=== PATIENT | female | born 1990 | race African-American/Black ===

== ENCOUNTER 2023-11-29 12:51 | Emergency (ER) | payer MEDICAID, OTHER ==
[~2023-11-29] VITALS: Ht 154.9 cm; Wt 57.2 kg
[2023-11-29] MEDS: IV NS 0.9% 1,000 ML BAG IV ONE ×3 (13:37→19:02)
[2023-11-29] MEDS ORDERED: MORPHINE SULFATE INJ 4 MG/ML DISP.SYRIN ONE ×2 (13:39→18:51)
[2023-11-29] MEDS ORDERED: ONDANSETRON HCL/PF 4 MG/2 ML VIAL ONE ×2 (13:40→18:51)
[2023-11-29 13:47] LABS: BASOPHILS # (AUTO) 0.1 K/uL (0.0-0.2); BASOPHILS % (AUTO) 0.9 % (0.0-2.0); EOSINOPHILS # (AUTO) 0.1 K/uL (0.0-0.7); EOSINOPHILS % (AUTO) 1.3 % (0.0-6.0); HEMATOCRIT 44 % (33-45); HEMOGLOBIN 14.6 g/dL (11.5-14.8); LYMPHOCYTES # (AUTO) 2.6 K/uL (0.8-4.8); LYMPHOCYTES % (AUTO) 37.2 % (20.0-44.0); MEAN CORPUSCULAR HEMOGLOBIN 31 PG (26.0-33.0); MEAN CORPUSCULAR HGB CONC 33 g/dl (31.0-36.0); MEAN CORPUSCULAR VOLUME 95 fL (82-100); MONOCYTES # (AUTO) 0.7 K/uL (0.1-1.30); NEUTROPHILS # (AUTO) 3.5 K/uL (1.8-8.9); NEUTROPHILS % (AUTO) 50.6 % (43.0-81.0); PLATELET COUNT (AUTO) 407 K/uL (150-450); RED BLOOD CELL COUNT(AUTO) 4.69 MIL/uL (4.0-5.2)
[2023-11-29] MEDS: ONDANSETRON HCL/PF 4 MG/2 ML VIAL IV ONE (13:51)
[2023-11-29 13:55] LABS: CREATININE 0.7 mg/dL (0.6-1.3)
[2023-11-29] MEDS: MORPHINE SULFATE INJ 2 MG/ML DISP.SYRIN IV ONE ×2 (13:55→19:10)
[2023-11-29 14:01] LABS: ALBUMIN 3.3 g/dL (3.4-5.0); BILIRUBIN,DIRECT 0.1 mg/dL (0.0-0.2); BILIRUBIN,TOTAL 0.6 mg/dL (0.2-1.0); TOTAL PROTEIN, SERUM 7.5 g/dL (6.4-8.2)
[2023-11-29] MEDS ORDERED: IV NS 0.9% 250 ML IV ONE (14:16)
[2023-11-29] MEDS ORDERED: IOHEXOL-300 100 ML VIAL IV ONE (14:16)
[2023-11-29] MEDS ORDERED: CT SWABBABLE VALVE TRANS SET 1 EA INFUS.SET MC ONE (14:16)
[2023-11-29 16:30] LABS: APPEARANCE,URINE CLEAR (CLEAR); BILIRUBIN,URINE 1+ (NEGATIVE); BLOOD, URINE NEGATIVE Ery/uL (NEGATIVE); COLOR,URINE DARK YELLOW (YELLOW); KETONES,URINE NEGATIVE (NEGATIVE); LEUKOCYTE ESTERASE ,URINE TRACE (NEGATIVE); NITRITE, URINE POSITIVE (NEGATIVE); PROTEIN,URINE TRACE mg/dl (NEGATIVE); UGLUCOSE NEGATIVE (NEGATIVE)
[2023-11-29 16:32] LABS: PREGNANCY TEST URINE QUAL NEGATIVE (NEGATIVE)
[2023-11-29 16:40] LABS: ADD URINE CULTURE YES; BACTERIA,URINE 2+ /HPF (None Seen); RBC,URINE 0-2 /HPF (0-2)
[2023-11-29 16:41] LABS: MUCUS,URINE Few /LPF (None Seen)
[2023-11-29] MEDS ORDERED: HYDROCODONE/APAP 5/325MG TABLET ONE (17:34)
[2023-11-29] MEDS: HYDROCODONE/APAP 5/325MG TABLET PO ONE (17:43)
[2023-11-29] MEDS ORDERED: ONDA4TAB5 PO (18:51)
[2023-11-29] MEDS ORDERED: HYDR-3980 PO (18:51)
[2023-11-29] MEDS ORDERED: PIPERACILLIN /TAZOBACTAM 3.375 G in IV D5W 50 ML IV ONE (19:00)
[2023-11-29] MEDS ORDERED: MORPHINE SULFATE INJ 2 MG/ML DISP.SYRIN IV ONE (19:00)
[2023-11-29] MEDS: ONDANSETRON HCL/PF 4 MG/2 ML VIAL IVP ONE ×2 (19:03→19:20)
[2023-11-29 20:07] VITALS: BP 132/82; TEMP 97.9; O2SAT 100
== END 2023-11-29 20:11 | disposition home or self-care (01) ==
LOC: ER 13:18
DX: K43.9 Ventral hernia without obstruction or gangrene (principal); G89.29 Other chronic pain; R10.10 Upper abdominal pain, unspecified; R11.0 Nausea; J45.909 Unspecified asthma, uncomplicated; Z88.6 Allergy status to analgesic agent
CPT/HCPCS: 99285; 74177; 96374; 96361; 96375; 96376; 85025; 80048; 87086; 83690; 80076; 84703; 81001; 36415; J2270 ×2; J2405 ×2; J2543; J7060; J7030 ×3; J7050; Q9967

== ENCOUNTER 2024-03-06 23:48 | Emergency (ER) | payer OTHER ==
[~2024-03-06] VITALS: Ht 154.9 cm; Wt 56.7 kg
[~2024-03-06 23:48] MED LIST: HYDR-3980 PO; ONDA4TAB5 PO
[2024-03-07] MEDS ORDERED: COLCHICINE 0.6 MG TABLET ONE (00:16)
[2024-03-07] MEDS ORDERED: dexaMETHasone SOD PHOSPHATE 1 ML ONE (00:16)
[2024-03-07] MEDS: COLCHICINE 0.6 MG TABLET PO ONE (00:24)
[2024-03-07] MEDS: dexaMETHasone SOD PHOSPHATE 4 MG/ML VIAL IM ONE (00:24)
[2024-03-07 01:05] VITALS: BP 116/71; TEMP 98; O2SAT 99
== END 2024-03-07 01:05 | disposition home or self-care (01) ==
LOC: ER 23:59
DX: S90.31XA Contusion of right foot, initial encounter (principal); M79.674 Pain in right toe(s); Z88.6 Allergy status to analgesic agent; X58.XXXA Exposure to other specified factors, initial encounter; Y93.89 Activity, other specified; Y92.89 Other specified places as the place of occurrence of the external cause; Y99.8 Other external cause status
CPT/HCPCS: 99284; 96372; 73630; 84550; 36415; J1100